=== PATIENT | male | born 1940 | race Caucasian/White ===

== ENCOUNTER 2016-05-31 14:13 | Emergency (ER) | payer OTHER, BC ==
[2016-05-31 14:18] VITALS: BP 147/99; PULSE 95; TEMP 98.2; BMI 28.7
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
[2016-05-31] MEDS ORDERED: IBUPROFEN 600 MG TABLET (FP) PO ONE ×2 (16:49→16:52)
[2016-05-31] MEDS ORDERED: MECLIZINE HCL 12.5 MG TABLET PO ONE (16:49)
[2016-05-31] MEDS ORDERED: MECLIZINE HCL 12.5 MG TABLET ONE (16:52)
== END 2016-05-31 17:45 | disposition home or self-care (01) ==
LOC: FER 14:13
DX: S13.4XXA Sprain of ligaments of cervical spine, initial encounter (principal); M54.2 Cervicalgia; V43.52XA Car driver injured in collision with other type car in traffic accident, initial encounter; Y93.89 Activity, other specified; Y92.410 Unspecified street and highway as the place of occurrence of the external cause
CPT/HCPCS: 71020-TC; 72050-TC; 93880-TC; 99282-25